=== PATIENT | male | born 1970 | race Caucasian/White ===

== ENCOUNTER 2022-12-07 19:07 | Emergency (ER) | payer OTHER, MEDICARE ==
[2022-12-07 19:18] VITALS: RESP 18
[2022-12-07 19:31] LABS: Glucose,Whole Blood 102 mg/dL (70-110)
[2022-12-07] MEDS ORDERED: HYDROmorphone 1 MG/ML 1 ML SYRINGE IVP STA (19:32)
[2022-12-07] MEDS ORDERED: SODIUM CHLORIDE 0.9% 1,000 ML IV STA (19:32)
[2022-12-07 19:39] LABS: Basophils # (A) 0.1 k/uL (0-0.2); Basophils % (A) 1 %; Eosinophils # (A) 0.3 k/uL (0-0.7); Eosinophils % (A) 2 %; HCT 53.7 % (39.0-53.0); HGB 18.3 gm/dL (13.0-17.5); Lymphocytes # (A) 2.4 k/uL (1.0-4.8); Lymphocytes % (A) 17 %; MCH 30.7 pg (25.0-35.0); MCV 90.2 fL (80.0-100.0); Mean Platelet Volume 8.7; Monocytes # (A) 0.6 k/uL (0-1.0); Monocytes % (A) 4 %; Neutrophils # (A) 10.7 k/uL (1.3-7.7); Neutrophils % (A) 75 %; Platelet Count 330 k/uL (150-450); RBC 5.95 m/uL (4.30-5.90); WBC 14.4 k/uL (3.8-10.6)
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
[2022-12-07 19:51] LABS: ALT 56 U/L (4-49); AST 44 U/L (17-59); African American GFR (CKD) 88 (>60 ml/min/1.73 sqM); Alcohol <10 mg/dL; Alkaline Phosphatase 66 U/L (38-126); Anion Gap 11 mmol/L; Blood Urea Nitrogen 15 mg/dL (9-20); Calcium 9.9 mg/dL (8.4-10.2); Carbon Dioxide 25 mmol/L (22-30); Chloride 100 mmol/L (98-107); Glucose 106 mg/dL (74-99); Non-African American GFR(CKD) 76 (>60 ml/min/1.73 sqM); Sodium 136 mmol/L (137-145); Total Bilirubin 0.9 mg/dL (0.2-1.3); Total Protein 8.8 g/dL (6.3-8.2)
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
[2022-12-07 20:02] LABS: Partial Thromboplastin Time 24.9 sec (22.0-30.0); Prothrombin Time 10.4 sec (9.0-12.0)
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
[2022-12-07] MEDS ORDERED: KETOROLAC 15 MG/ML 1 ML VIAL IVP STA (20:47)
[2022-12-07] MEDS ORDERED: ACET/COD 300 MG/30 MG STARTER PACK 6 TAB BTL PO STA (20:48)
[2022-12-07] MEDS ORDERED: Acetaminophen-Codeine 300-30mg TAB PO STA (20:48)
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
[2022-12-07 21:22] VITALS: BP 138/96; PULSE 72; TEMP 98.7
[2022-12-07 21:26] LABS: Appearance,Urine Clear (Clear); Bilirubin,Urine Negative (Negative); Blood,Urine Negative (Negative); Color,Urine Light Yellow; Glucose,Urine (UA) Negative (Negative); Ketones,Urine Negative (Negative); Leukocyte Esterase,Urine Negative (Negative); Nitrite,Urine Negative (Negative); Protein,Urine Negative (Negative); Specific Gravity,Urine 1.014 (1.001-1.035); Urobilinogen,Urine <2.0 mg/dL (<2.0)
[2022-12-07 21:52] LABS: Amphetamine Screen,Urine Detected (NotDetected); Barbiturate Screen,Urine Not Detected (NotDetected); Benzodiazepines Screen,Urine Detected (NotDetected); Cocaine Screen,Urine Not Detected (NotDetected); Methadone Screen, Urine Not Detected (NotDetected); Opiate Screen,Urine Detected (NotDetected); Oxycodone Screen, Urine Not Detected (NotDetected); Phencyclidine Screen,Urine Not Detected (NotDetected); Tricyclic Antidepressant,Urine Not Detected (NotDetected); Urn Cannabinoid Scrn Not Detected (NotDetected)
== END 2022-12-07 21:32 | disposition home or self-care (01) ==
LOC: EC 19:07
DX: R07.89 Other chest pain (principal); V29.99XA Rider (driver) (passenger) of other motorcycle injured in unspecified traffic accident, initial encounter
CPT/HCPCS: 36415; 93005; 86900; 86901; 80053; 84484; 85025; 85610; 85730; 86850; 81003; 80306; 80320; 72170; 73610; 71045; 72125; 70450; 71260; 74177; 99285; 96374; 96375; 96361; L0120; J1170; J1885; Q9967

== ENCOUNTER 2023-08-24 06:56 | Inpatient (IN) | payer MEDICARE, OTHER ==
--- NOTE | 2023-08-24 07:55 | ED ---
General Adult HPI - General Chief complaint: Weakness Stated complaint: Paralysis, loss of circulation, Fall Time Seen by Provider: 08/24/23 07:13 Source: patient Mode of arrival: wheelchair Limitations: no limitations - History of Present Illness Initial comments: Dictation was produced using [employer] dictation software. please excuse any grammatical, word or spelling errors. Chief Complaint: 53-year-old male with multiple musculoskeletal surgeries pr esents to the ER for worsening weakness History of Present Illness: Patient is a 53-year-old male he presents to the ER for worsening weakness he has been feeling symptoms for the last 3 weeks. Jennifer ent states that he is having difficulty raising his arms up to grab something in the upper cupboards. Patient states that his symptoms have been much more progressive. Lives at home by himself feels like he is unable to care for himself. States that the weakness also affects his legs causing him to fall. He went to his primary care doctor yesterday and was encouraged to come to the ER to be admitted. Patient denies any recent illnesses. He complains of significant surgeries to all of his extremities. The ROS documented in this emergency department record has been reviewed and confirmed by me. Those systems with pertinent positive or negative responses have been documented in the HPI. All other systems are other negative and/or noncontributory. - Related Data Allergies Allergy/AdvReac Type Severity Reaction Status Date / Time No Known Allergies Allergy Verified 08/24/23 07:22 Review of Systems ROS Statement: Those systems with pertinent positive or pertinent negative responses have been documented in the HPI. ROS Other: All systems not noted in ROS Statement are negative. Past Medical History Additional Past Medical History / Comment(s): TRT therapy elevates blood pressure History of Any Multi-Drug Resistant Organisms: None Reported Past Surgical History: Orthopedic Surgery Additional Past Surgical History / Comment(s): Knee, shoulder replacement Past Psychological History: ADD/ADHD, Anxiety, Depression Smoking Status: Vaper Past Alcohol Use History: None Reported Past Drug Use History: None Reported General Exam - General Exam Comments Initial Comments: PHYSICAL EXAM: General Impression: Alert and oriented x3, not in acute distress HEENT: Normocephalic atraumatic, extra-ocular movements intact, pupils equal and reactive to light bilaterally, mucous membranes moist. Cardiovascular: Heart regular rate and rhythm Chest: Able to complete full sentences, no retractions, no tachypnea Abdomen: abdomen soft, non-tender, non-distended, no organomegaly Musculoskeletal: Pulses present and equal in all extremities, no peripheral edema, difficulty abducting upper extremities past 45 degrees Motor: no focal deficits noted Neurological: CN II-XII grossly intact, no focal motor or sensory deficits noted, no hyperreflexia Skin: Intact with no visualized rashes Psych: Normal affect and mood Limitations: no limitations Course Vital Signs 08/24/23 07:18 Temperature 97.6 F Pulse Rate 89 Respiratory 20 Rate Blood Pressure 158/91 O2 Sat by Pulse 98 Oximetry Medical Decision Making - Medical Decision Making Was pt. sent in by a medical professional or institution (, PA, BLOW MOLDER, urgent care, hospital, or senior care...) When possible be specific @ -No Did you speak to anyone other than the patient for history (EMS, parent, family, police, friend...)? What history was obtained from this source @ -No Did you review nursing and triage notes (agree or disagree)? Why? @ -I reviewed and agree with nursing and triage notes Were old charts reviewed (outside hosp., previous admission, EMS record, old EKG, old radiological studies, urgent care reports/EKG's, senior care records)? Report findings @ -No old charts were reviewed Differential Diagnosis (chest pain, altered mental status, abdominal pain women, abdominal pain men, vaginal bleeding, musculoskeletal, weakness, fever, dyspnea, syncope, headache, dizziness, GI bleed, back pain, seizure, CVA, palpatations, mental health)? @ -Differential Weakness: Hypoglycemia, shock, sepsis, hyponatremia, anemia, infection, IN, ETOH, adverse medicine reaction, overdose, stroke, this is not meant to be an all-inclusive list. EKG interpreted by me (3pts min.). @ -None done X-rays interpreted by me (1pt min.). @ -None done CT interpreted by me (1pt min.). @ -None done U/S interpreted by me (1pt. min.). @ -None done What testing was considered but not performed or refused? (CT, X-rays, U/S, labs)? Why? @ -None What meds were considered but not given or refused? Why? @ -None Did you discuss the management of the patient with other professionals (professionals i.e. , PA, BLOW MOLDER, lab, RT, psych nurse, director of social services, donor services technician, teacher, special forces officer, bottle caser)? Give summary @ -Case discussed with hospitalist for admission Was smoking cessation discussed for >3mins.? @ -No Was critical care preformed (if so, how long)? @ -No Were there social determinants of health that impacted care today? How? (Homelessness, low income, unemployed, alcoholism, drug addiction, transportation, low edu. Level, literacy, decrease access to med. care, fdc, rehab)? @ -No Was there de-escalation of care discussed even if they declined (Discuss DNR or withdrawal of care, Hospice)? DNR status @ -No What co-morbidities impacted this encounter? (DM, HTN, Smoking, COPD, CAD, Cancer, CVA, ARF, Chemo, Hep., AIDS, mental health diagnosis, sleep apnea, morbid obesity)? @ -None Was patient admitted / discharged? Hospital course, mention meds given and route, prescriptions, significant lab abnormalities, going to OR and other pertinent info. @ -53-year-old male presents to the emergency department for worsening neuropathic versus myopathic symptoms. Patient is so weak that he is unable to lift his arms above 40 to 5 to 50 degrees. Patient has been having systemic neuropathic symptoms raising suspicion of Guillain-Tran. Vital signs upon arrival are within acceptable limits. Laboratory evaluation is unremarkable. Patient reports that his symptoms are so severe that he is unable to perform his activities of daily living at home. He does not have any assistance at home. Patient is a fall risk and does not have a good social situation. Patient will be admitted with consultation to neurology. Undiagnosed new problem with uncertain prognosis? @ -No Drug Therapy requiring intensive monitoring for toxicity (Heparin, Nitro, Insulin, Cardizem)? @ -No Were any procedures done? @ -No Diagnosis/symptom? Acute, or Chronic, or Acute on Chronic? Uncomplicated (without systemic symptoms) or Complicated (systemic symptoms)? @ -Gravely disabled Side effects of treatment? @ -No Exacerbation, Progression, or Severe Exacerbation? @ -No Poses a threat to life or bodily function? How? (Chest pain, USA, [place], pneumonia, PE, COPD, DKA, ARF, appy, cholecystitis, CVA, Diverticulitis, Homicidal, Suicidal, threat to staff... and all critical care pts) @ -yes - Lab Data Result diagrams: 08/24/23 08:00 08/24/23 08:00 Lab Results 08/24/23 08/24/23 Range/Units 08:00 08:00 WBC 7.8 (3.8-10.6) k/uL RBC 5.43 (4.30-5.90) m/uL Hgb 17.1 (13.0-17.5) gm/dL Hct 51.4 (39.0-53.0) % MCV 94.8 (80.0-100.0) fL MCH 31.5 (25.0-35.0) pg MCHC 33.2 (31.0-37.0) g/dL RDW 13.2 (11.5-15.5) % Plt Count 362 (150-450) k/uL MPV 8.4 Neutrophils % 56 % Lymphocytes % 27 % Monocytes % 8 % Eosinophils % 4 % Basophils % 1 % Neutrophils # 4.4 (1.3-7.7) k/uL Lymphocytes # 2.1 (1.0-4.8) k/uL Monocytes # 0.6 (0-1.0) k/uL Eosinophils # 0.3 (0-0.7) k/uL Basophils # 0.1 (0-0.2) k/uL Sodium 137 (137-145) mmol/L Potassium 4.1 (3.5-5.1) mmol/L Chloride 98 (98-107) mmol/L Carbon Dioxide 29 (22-30) mmol/L Anion Gap 10 mmol/L BUN 13 (9-20) mg/dL Creatinine 0.89 (0.66-1.25) mg/dL Est GFR (CKD-EPI)AfAm >90 (>60 ml/min/1.73 sqM) Est GFR (CKD-EPI)NonAf >90 (>60 ml/min/1.73 sqM) Glucose 117 H (74-99) mg/dL Calcium 9.8 (8.4-10.2) mg/dL Magnesium 2.1 (1.6-2.3) mg/dL Creatine Kinase 595 H (55-170) U/L Disposition Clinical Impression: Neuropathy Disposition: ADMITTED IP TO THIS HOSP Condition: Fair Referrals: Jessica Deras MD [Primary Care Provider] - 1-2 days Decision Time: 08:46
[2023-08-24 08:08] LABS: Basophils # (A) 0.1 k/uL (0-0.2); Basophils % (A) 1 %; Eosinophils # (A) 0.3 k/uL (0-0.7); Eosinophils % (A) 4 %; HCT 51.4 % (39.0-53.0); HGB 17.1 gm/dL (13.0-17.5); Lymphocytes # (A) 2.1 k/uL (1.0-4.8); Lymphocytes % (A) 27 %; MCH 31.5 pg (25.0-35.0); MCHC 33.2 g/dL (31.0-37.0); MCV 94.8 fL (80.0-100.0); Mean Platelet Volume 8.4; Monocytes # (A) 0.6 k/uL (0-1.0); Monocytes % (A) 8 %; Neutrophils # (A) 4.4 k/uL (1.3-7.7); Neutrophils % (A) 56 %; Platelet Count 362 k/uL (150-450); RBC 5.43 m/uL (4.30-5.90); RDW 13.2 % (11.5-15.5); WBC 7.8 k/uL (3.8-10.6)
[2023-08-24 08:20] LABS: African American GFR (CKD) >90 (>60 ml/min/1.73 sqM); Anion Gap 10 mmol/L; Blood Urea Nitrogen 13 mg/dL (9-20); Calcium 9.8 mg/dL (8.4-10.2); Carbon Dioxide 29 mmol/L (22-30); Chloride 98 mmol/L (98-107); Creatine Kinase 595 U/L (55-170); Glucose 117 mg/dL (74-99); Magnesium 2.1 mg/dL (1.6-2.3); Non-African American GFR(CKD) >90 (>60 ml/min/1.73 sqM); Potassium 4.1 mmol/L (3.5-5.1); Sodium 137 mmol/L (137-145)
[2023-08-24] MEDS ORDERED: NALOXONE 0.4 MG/ML 1 ML VIAL IV PRN (08:43)
[2023-08-24 08:46] VITALS: TEMP 97.6
[2023-08-24] MEDS: SODIUM CHLORIDE 0.9% 1,000 ML IV SCH (09:02)
[2023-08-24 10:22] VITALS: BP 133/79; PULSE 78; RESP 18
[2023-08-24] MEDS ORDERED: ONDANSETRON 4 MG/2 ML VIAL IVP PRN (10:42)
[2023-08-24] MEDS ORDERED: ACETAMINOPHEN TAB 325 MG TAB PO PRN (10:42)
[2023-08-24] MEDS ORDERED: XTAMPZA PO SCH (10:45)
[2023-08-24] MEDS ORDERED: [UNRECOGNIZED DRUG - OTHER] PO SCH (10:45)
[2023-08-24] MEDS ORDERED: oxyCODONE-APAP 10-325MG 1 EACH TAB PO SCH (12:00)
--- NOTE | 2023-08-24 13:05 | P.HPIM ---
History of Present Illness H&P Date: 08/24/23 Chief Complaint: Weakness * Per chart review * 53-year-old gentleman with past medical history significant for depression, anxiety, hypertension, chronic pain presented to the emergency department with complaints of generalized weakness, patient said he is having difficulty ra ising him arms up to grab anything above shoulder. Patient said her symptoms have been progressive. Patient said he lives by himself and is unable to take care of things. Patient states her weakness is also affected his legs to the point that his legs gave out causing him to fall patient went to his primary care physician and was requested to go to ER for further evaluation. At the time of presentation in ER patient was alert and oriented x 3, neurological exam the cranial nerves are grossly intact, no hyperreflexia was noted. * Was obtained by ED team, neurology was consulted, patient does have global weakness with unable to lift arms above shoulder he remains a high fall risk and will need further evaluation to rule out etiology for progressive weakness * Workup initiated ER include CBC which essentially negative, serum chemistry showed normal sodium, potassium, renal function, magnesium CPK was 595 * Patient eloped from the ER without if examination not being seen Assessment and plan * Progressive weakness rule out neurological etiology * Nontraumatic mild rhabdomyolysis * History of hypertension * History of chronic pain * Patient eloped from the ER, without being seen by neurology ordered by admitting team * Please see ER physician documentation Past Medical History Additional Past Medical History / Comment(s): TRT therapy elevates blood pressure History of Any Multi-Drug Resistant Organisms: None Reported Past Surgical History: Orthopedic Surgery Additional Past Surgical History / Comment(s): Knee, shoulder replacement Past Psychological History: ADD/ADHD, Anxiety, Depression Smoking Status: Vaper Past Alcohol Use History: None Reported Past Drug Use History: None Reported Medications and Allergies Home Medications Medication Instructions Recorded Confirmed Type Cephalexin [Keflex] 500 mg PO DIRECTED 08/24/23 08/24/23 History Dextroamphetamine/Amphetamine 20 mg PO TID PRN 08/24/23 08/24/23 History [Adderall] Enalapril Maleate 10 mg PO DAILY 08/24/23 08/24/23 History Oxycodone Myristate [Xtampza ER] 18 mg PO Q12H 08/24/23 08/24/23 History Pregabalin [Lyrica] 75 mg PO BID 08/24/23 08/24/23 History Testosterone Cypionate 150 mg IM DIRECTED 08/24/23 08/24/23 History [Depo-Testosterone] amLODIPine [Norvasc] 10 mg PO DAILY 08/24/23 08/24/23 History diazePAM [Diazepam] 10 mg PO TID 08/24/23 08/24/23 History oxyCODONE-APAP 10-325MG [Percocet 2 tab PO DAILY@1200 08/24/23 08/24/23 History 10-325 mg] Allergies Allergy/AdvReac Type Severity Reaction Status Date / Time No Known Allergies Allergy Verified 08/24/23 09:56 Physical Exam Vitals: Vital Signs Temp Pulse Resp BP Pulse Ox 08/24/23 10:00 78 18 133/79 99 08/24/23 07:18 97.6 F 89 20 158/91 98 Intake and Output 08/23/23 08/24/23 08/24/23 22:59 06:59 14:59 Other: Weight 94.347 kg Results CBC & Chem 7: 08/24/23 08:00 08/24/23 08:00 Labs: Abnormal Lab Results - Last 24 Hours (Table) 08/24/23 Range/Units 08:00 Glucose 117 H (74-99) mg/dL Creatine Kinase 595 H (55-170) U/L
--- NOTE | 2023-08-24 13:06 | P.DS ---
Providers Date of admission: 08/24/23 08:44 Expected date of discharge: 08/24/23 Attending physician: Danyel Villatoro Consults: 08/24/23 07:47 Consult Physician Routine Consulting Provider: Kenyetta Duron Consult Reason/Comments: neuropathy Do you want consulting provider notified?: Yes Primary care physician: Jessica Fisher [facility] Course: * Per chart review * 53-year-old gentleman with past medical history significant for depression, anxiety, hypertension, chronic pain presented to the emergency department with complaints of generalized weakness, patient said he is having difficulty raising him arms up to grab anything above shoulder. Patient said her symptoms have been progressive. Patient said he lives by himself and is unable to take care of things. Patient states her weakness is also affected his legs to the point that his legs gave out causing him to fall patient went to his primary care physician and was requested to go to ER for further evaluation. At the time of presentation in ER patient was alert and oriented x 3, neurological exam the cranial nerves are grossly intact, no hyperreflexia was noted. * Was obtained by ED team, neurology was consulted, patient does have global weakness with unable to lift arms above shoulder he remains a high fall risk and will need further evaluation to rule out etiology for progressive weakness * Workup initiated ER include CBC which essentially negative, serum chemistry showed normal sodium, potassium, renal function, magnesium CPK was 595 * Patient eloped from the ER without if examination not being seen * Left from ER AGAINST MEDICAL ADVICE, was seen by ED provider Assessment and plan * Progressive weakness rule out neurological etiology * Nontraumatic mild rhabdomyolysis * History of hypertension * History of chronic pain * Patient eloped from the ER, without being seen by neurology ordered by admitting team * Please see ER physician documentation Patient Condition at Discharge: Fair Plan - Discharge Summary New Discharge Prescriptions: No Action Dextroamphetamine/Amphetamine [Adderall] 20 mg PO TID PRN PRN Reason: adhd diazePAM [Diazepam] 10 mg PO TID Oxycodone Myristate [Xtampza ER] 18 mg PO Q12H amLODIPine [Norvasc] 10 mg PO DAILY Enalapril Maleate 10 mg PO DAILY oxyCODONE-APAP 10-325MG [Percocet 10-325 mg] 2 tab PO DAILY@1200 Pregabalin [Lyrica] 75 mg PO BID Testosterone Cypionate [Depo-Testosterone] 150 mg IM DIRECTED Cephalexin [Keflex] 500 mg PO DIRECTED Discharge Medication List Cephalexin [Keflex] 500 mg PO DIRECTED 08/24/23 [History] Dextroamphetamine/Amphetamine [Adderall] 20 mg PO TID PRN 08/24/23 [History] Enalapril Maleate 10 mg PO DAILY 08/24/23 [History] Oxycodone Myristate [Xtampza ER] 18 mg PO Q12H 08/24/23 [History] Pregabalin [Lyrica] 75 mg PO BID 08/24/23 [History] Testosterone Cypionate [Depo-Testosterone] 150 mg IM DIRECTED 08/24/23 [History] amLODIPine [Norvasc] 10 mg PO DAILY 08/24/23 [History] diazePAM [Diazepam] 10 mg PO TID 08/24/23 [History] oxyCODONE-APAP 10-325MG [Percocet 10-325 mg] 2 tab PO DAILY@1200 08/24/23 [History] Follow up Appointment(s)/Referral(s): Jessica Deras MD [Primary Care Provider] - 1-2 days Patient Instructions/Handouts: Against Medical Advice (ED) Discharge Disposition: LEFT AGAINST MEDICAL ADVICE
[2023-08-24] MEDS ORDERED: diazePAM 5 MG TAB PO SCH (16:00)
[2023-08-24] MEDS ORDERED: PREGABALIN 75 MG CAP PO SCH (21:00)
[2023-08-25] MEDS ORDERED: ENOXAPARIN 40 MG/0.4 ML SYRINGE SQ SCH (09:00)
[2023-08-25] MEDS ORDERED: amLODIPine 10 MG TAB PO SCH (09:00)
[2023-08-25] MEDS ORDERED: lisinopriL 20 MG TAB PO SCH (09:00)
== END 2023-08-24 11:11 | disposition left against medical advice (07) | DRG 558 ==
LOC: EC 06:56 → 5NMEDONC 08:44
PROVIDERS: ADMIT Hospitalist; ATTEND Hospitalist
DX: M62.82 Rhabdomyolysis (principal); W19.XXXA Unspecified fall, initial encounter; I10 Essential (primary) hypertension; G89.29 Other chronic pain; F90.9 Attention-deficit hyperactivity disorder, unspecified type; F41.9 Anxiety disorder, unspecified; F32.A Depression, unspecified; F17.290 Nicotine dependence, other tobacco product, uncomplicated; G83.9 Paralytic syndrome, unspecified; G62.9 Polyneuropathy, unspecified; Z91.81 History of falling; Z79.891 Long term (current) use of opiate analgesic; Z79.899 Other long term (current) drug therapy; Z60.2 Problems related to living alone; Z96.659 Presence of unspecified artificial knee joint; Z96.619 Presence of unspecified artificial shoulder joint
CPT/HCPCS: 36415; 80048; 82550; 83735; 85025; 99285